=== PATIENT | male | born 1990 | race Caucasian/White ===

== ENCOUNTER 2019-11-10 16:26 | Emergency (ER) | payer OTHER, SELFPAY ==
[2019-11-10 16:29] VITALS: BP 147/90; PULSE 89; RESP 17; TEMP 36.4; O2SAT 99; BMI 29.2
--- NOTE | 2019-11-10 17:39 | US_ITS ---
STUDY: ABDOMINAL ULTRASOUND - RIGHT UPPER QUADRANT REASON FOR VISIT: Male, 29 years old. Right abdominal pain. TECHNIQUE: Ultrasound evaluation of the right upper quadrant was performed with real-time and static angulo-scale imaging. TECHNICAL QUALITY: Examination limited by bowel gas. COMPARISON: None. FINDINGS: Liver: The liver measures 19.8 cm. There is normal echogenicity of the liver. The bile ducts are within normal limits. There is hepatic color flow. The direction of portal flow is hepatopetal. There is no demonstrated mass lesion. Gallbladder: Normal distended gallbladder. The gallbladder wall measures 2 mm. There is a negative sonographic Grimes''s sign. There is no pericholecystic fluid. There are no gallstones. Common Bile Duct (C.B.D.): The common bile duct measures 2 mm. Pancreas: The pancreas is incompletely seen. The head and body appear grossly normal. The tail is obscured. Right Kidney: Normal size of the right kidney. The right kidney measures 11.8 cm. Normal renal cortex. The right cortex measures 2.0 cm. There is no demonstrated renal mass or cyst. There is no right hydronephrosis. US/Abdomen Limited IMPRESSION: 1. Limited visualization of pancreas. 2. Mild hepatomegaly without mass. 3. The study is otherwise normal. Electronically Signed: Percy Chaney DO at 18:59 EDT Tel [phone], Service support ,
--- NOTE | 2019-11-10 17:42 | ED.DCSUM_ITS ---
History of Present Illness Chief Complaint: Abd Pain Informant: Patient - Abdominal Pain/Flank Pain Onset: Days Context: Gradual Onset Timing: Continuous Quality: Aching Location: RUQ Worsened by: Nothing Relieved by: Nothing - Nausea/Vomiting/Emesis GI Symptom: Nausea. Negative for: Vomiting Onset: Yesterday - Diarrhea/Melena/Hematochezia GI Symptom: Negative for: Diarrhea, Melena, Hematochezia Associated Symptoms: Negative for: Dysuria, Frequency, Hematuria Narrative: Patient is a 29-year-old male that denies any past medical history presenting with abdominal pain. Patient states initially started discomfort in his epigastric region 2 days ago. He thought it is because they went on [employer] and he ate a lot of donuts however the pain persisted and moved to his right upper quadrant. He states since yesterday it is been constant and crampy in nature. Radiates slightly to his back. He had associated nausea but no vomiting. He states yesterday he had multiple bowel movements but they are all well formed denies any black or blood in them. He denies any urinary symptoms. No change in the pain with eating. Has not taken anything for the pain. Denies any history of any abdominal surgeries. No other complaints at this time. Past Medical History - Allergies and Home Meds Allergies/Adverse Reactions: Allergies No Known Allergies Allergy (Verified 11/10/19 16:27) Past Medical History: None Surgical History: noncontributory Lives: With Family Smoking Status: Never smoker Review of Systems General: Denies: Chills, Fever, Sweats Eyes: Denies: Visual changes - bilaterally, Diplopia ENT: Denies: Rhinorrhea, Sore throat Cardiovascular: Denies: Chest pain, Palpitations Respiratory: Denies: Dyspnea, Cough, Dyspnea on exertion Gastrointestinal: Reports: Abdominal pain, Nausea. Denies: Vomiting, Diarrhea, Melena, Hematochezia Genitourinary: Denies: Dysuria, Hematuria, Frequency Musculoskeletal: Denies: Back pain, Extremity Pain Skin: Denies: Rash, Wounds Neurological: Denies: Headache, Weakness, Numbness Physical Exam Vital Signs/Narrative: Vital Signs Temp Pulse Resp BP Pulse Ox 11/10/19 16:29 97.5 F L 89 17 147/90 H 99 Inital Vital Signs reviewed: Yes General: Well nourished, Well developed, No Acute Distress Head: Normocephalic, Atraumatic Eyes: Perrl, EOMI ENT: Moist mucous membranes, No rhinorrhea Neck: Supple, Nontender Cardiovascular: Regular rate, Regular rhythm, No murmurs Respiratory: No distress, CTA bilaterally, Chest nontender Abdomen: Soft, Nontender, Nondistended, Normal bowel sounds. Negative for: Guarding, Rebound tenderness, Grimes's sign Back: Nontender, Normal Inspection. Negative for: CVA tenderness Extremities: Nontender, No edema Skin: Normal color, No rash Neurological: Alert, Oriented x3, Cranial nerves II-XII grossly intact, Normal Strength, Normal Sensation Psychological: Normal affect, Normal Mood Diagnostic/Tx/Re-eval Clinical Impression(s) from Imaging Studies Abdomen Ultrasound 11/10/19 17:39 IMPRESSION: 1. Limited visualization of pancreas. 2. Mild hepatomegaly without mass. 3. The study is otherwise normal. Electronically Signed: Percy Chaney DO at 18:59 EDT Tel [phone], Service support , Laboratory Data 11/10/19 11/10/19 11/10/19 17:45 17:45 17:55 WBC 7.2 RBC 5.11 Hgb 15.0 Hct 43.8 MCV 85.7 MCH 29.4 MCHC 34.2 RDW Std Deviation 39.2 RDW Coeff of Renny 12.6 Plt Count 237 MPV 9.1 Immature Gran % (Auto) 0.300 Neut % (Auto) 69.3 Lymph % (Auto) 18.9 L [place] % (Auto) 9.4 Eos % (Auto) 1.7 Baso % (Auto) 0.4 Absolute Neuts (auto) 5.0 Absolute Lymphs (auto) 1.36 Nucleated RBC % 0 Sodium 139 Potassium 3.7 Chloride 107 Carbon Dioxide 28.0 Anion Gap 4 L BUN 12 Creatinine 0.87 Estim Creat Clear Calc 151.09 Est GFR (MDRD) Af Amer 135 Est GFR (MDRD) Non-Af 111 BUN/Creatinine Ratio 13.8 Glucose 93 Calcium 9.1 Total Bilirubin 1.70 H Direct Bilirubin 0.31 H AST 16 ALT 31 Alkaline Phosphatase 57 Total Protein 7.6 Albumin 4.4 Globulin 3.2 Lipase 45 L Urine Color Yellow Urine Clarity Clear Urine pH 6.0 Ur Specific [place] 1.010 Urine Protein Negative Urine Glucose (UA) Normal Urine Ketones Negative Urine Occult Blood Negative Urine Nitrite Negative Urine Bilirubin Negative Urine Urobilinogen Normal Ur Leukocyte Esterase Negative Urine RBC 0 SEEN Urine WBC 0 SEEN Ur Squamous Epith Cells 0 SEEN Urine Bacteria 0 SEEN Urine Mucus 0 SEEN - Medical Decision Making Patient is a 29-year-old male presenting with 3 days of right upper quadrant abdominal pain. Appears nontoxic in no acute distress. He has had associated nausea but no vomiting or diarrhea. His abdomen is soft and nontender. He is negative Grimes sign. Given the location of the pain I will obtain right upper quadrant ultrasound. Also check labs which are grossly normal. His bilirubin is mildly elevated but he is not have any obstructive process seen on his ultrasound. Patient is given Pepcid in the emergency room. I suspect that he has a component of gastritis or may be peptic ulcer disease is contribute to his symptoms. He will be started on an antacid for this. He is given return precautions. He is instructed to follow-up with his primary care doctor. Patient is counseled on signs and symptoms requiring return to the emergency room. Patient verbalizes agreement and understand this plan. Patient discharged home in stable and improved condition. ED Disposition - Plan for ED Patient: Disposition: Home or Assisted Living Diagnosis: RUQ abdominal pain Instructions: ED PEPTIC ULCER vs GASTRITIS, ED Unknown Causes of Abdominal Pain Male Prescriptions: Famotidine [Pepcid] 20 mg PO BID #28 tab Transmission Status: Received by [id number] Additional Instructions: Your ultrasound did not show an acute gallbladder attack or other acute surgical process. Your lab work was relatively normal today. I think you are safe to follow-up with your primary care doctor. If you do not have one, you been referred to 1 today. I am we will start you on an antacid as I think this might be beneficial. This was sent to your pharmacy. You can also take [id number] Gas-X/simethicone to help if this is gas pains.
[2019-11-10] MEDS: 0.9% Normal Saline 1,000 ML 1000 ML IV (17:59)
[2019-11-10 18:01] LABS: Bacteria 0 SEEN /hpf (None Seen); Mucous, Urine 0 SEEN /hpf (<or=2+); Red Blood Cells-Urine 0 SEEN /hpf (0-5); Squamous Epithelial Cells - UA 0 SEEN /hpf (0-5); White Blood Cells 0 SEEN /hpf (0-5)
[2019-11-10 18:02] LABS: Absolute Lymphocyte Count 1.36 X10^3/uL (0.83-4.51); Basophil# 0.03 X10^3/uL; Basophil% 0.4 % (0-1); Eosinophil# 0.12 X10^3/uL; Eosinophils% 1.7 % (0-5); Hematocrit 43.8 % (40-54); Lymphocyte # 1.36 X10^3/ul (4.0); Lymphocyte % 18.9 % (19-41); Mean Corp Hgb Conc 34.2 g/dL (32-36); Mean Corpuscular Hgb 29.4 pg (27.0-32.0); Mean Corpuscular Volume 85.7 fL (80-94); Mean Platelet Vol. 9.1 fl (6.2-12.0); Monocyte# 0.68 X10^3/uL; Monocyte% 9.4 % (0-10); NRBC Flagged by Analyzer 0 % (0-5); Neutrophil % 69.3 % (47-70); Platelet Count 237 K/mm3 (150-450); RBC Distribution Width CV 12.6 % (11.6-14.6); RBC Distribution Width SD 39.2 fl (35.1-43.9); Red Blood Count 5.11 M/mm3 (4.6-6.2); White Blood Count 7.2 K/mm3 (4.4-11.0)
[2019-11-10 18:39] VITALS: RESP 18
[2019-11-10] MEDS: Famotidine 200 MG/20 ML MDV 20 MG in 0.9% Normal Saline (Pres. free 8 ML 300 MG IV (18:39)
[2019-11-10 18:41] LABS: Color, Urine Yellow (Yellow); Glucose, Dipstick Normal (Normal); Ketone-Dipstick Negative (Negative); Leukocyte Esterase-Dipstick Negative /ul (Negative); Nitrite-Dipstick Negative (Negative); Occult Blood-Urine Negative /ul (Negative); Protein-Dipstick Negative (Negative); Urine Bilirubin Dipstick Negative (Negative); Urine Clarity Clear (Clear); Urine Urobilinogen Normal (Normal)
[2019-11-10 18:59] LABS: AST(SGOT) 16 U/L (15-37); Alanine Aminotransfer ALT/SGPT 31 U/L (16-61); Albumin, Serum 4.4 g/dL (3.2-5.0); Alkaline Phosphatase 57 U/L (45-117); Anion Gap 4 (5-15); BUN 12 mg/dL (7-18); BUN/Creat Ratio 13.8 RATIO (10-20); Bilirubin, Direct 0.31 mg/dL (0.00-0.30); Calcium,Total 9.1 mg/dL (8.5-10.1); Chloride 107 mmol/L (98-107); Creatinine, Serum 0.87 mg/dL (0.70-1.30); EST Glomerular Filtration Rate 111 mL/min (>60); Est Glom Filt Rate - Afr Amer 135 mL/min (>60); Estimated Creatinine Clearance 151.09 ml/min; Globulin 3.2 g/dL (2.2-4.2); Glucose 93 mg/dL (74-106); Lipase 45 U/L (73-393); Potassium 3.7 mmol/L (3.5-5.1); Protein, Total 7.6 g/dL (6.4-8.2); Sodium Level 139 mmol/L (136-145)
--- NOTE | 2019-11-10 19:29 | ED.RN ---
Called lab for urine results. Tech said they were really behind but she will check on the results.
[2019-11-10 20:04] VITALS: BP 122/74
== END 2019-11-10 20:06 | disposition home or self-care (01) ==
PROVIDERS: Emergency Provider Emergency Medicine
DX: R10.11 Right upper quadrant pain (principal)
CPT/HCPCS: 76705; 80048; 80076; 81001; 83690; 85025; 96361; 96374; 99283; J3490